=== PATIENT | male | born 1955 | race Caucasian/White ===

== ENCOUNTER → 2018-02-14 | Day surgery (SDC) | payer OTHER ==
[2018-01-05 12:34] VITALS: Ht 167.6 cm; Wt 72.7 kg
[~2018-02-14] VITALS: Ht 167.6 cm; Wt 72.7 kg
[~2018-02-14] MED LIST: ASPI-435 PO; ATROPINE SULFATE 0.1 MG/ML 5ML SYR IV PRN; BUPIVACAINE 0.5 % 5 MG/1 ML MPF 30ML VIAL ONE; CLINDAMYCIN PHOS 150 MG/ML 2 ML VIAL IV SCH; DEXAMETHASONE SOD INJ 4 MG/ML VIAL ONE; EpHEDrine SULFATE INJ 50 MG/ML AMP IV PRN; EpHEDrine SULFATE INJ 50 MG/ML AMP ONE; FENTANYL CITRATE INJ 50 MCG/1 ML 2 ML VIAL ONE; FLUMAZENIL 0.1 MG/1 ML 10 ML VIAL IV PRN; HYDROmorphone INJ 0.5 MG/0.5 ML SYR IV PRN; LABETALOL HCL IV 5 MG/ML 20ML IV PRN; LACTATED RINGER'S 1000ML 1,000 ML IV SCH; LIDOCAINE HCL 2% 2 ML VIAL (20MG/ML) ONE; MIDAZOLAM HCL 1 MG/ML 2ML VIAL ONE; NALOXONE HCL 0.4 MG/1 ML VIAL/CARP IV PRN; OMEGCAP2 PO; ONDANSETRON INJ 2 MG/ML 2 ML VIAL IV PRN; ONDANSETRON INJ 2 MG/ML 2 ML VIAL ONE; OXYC-57 PO; PROMETHAZINE HCL INJ 12.5 MG in SODIUM CHLORIDE 0.9% 50ML 50 ML IV PRN; PROPOFOL IV EMULSION 10 MG/ML 20 ML VIAL ONE
--- NOTE | 2018-02-14 11:22 | History & Physical Bridge - [place] ---
H&P Re-Evaluation Bridge Note: I have examined the patient, reviewed the History & Physical and in the interval since the performance of the History & Physical I have noted the following changes of clinical significance: No changes noted Plan for cartiva implant left 1st MTPJ
--- NOTE | 2018-02-14 11:25 | Discharge Instructions-SurgCtr ---
Discharge Instructions Date of Service February 14, 2018. Visit Reason for Visit: Left Foot Hallux Rigidus Discharge Discharge Diagnosis / Problem: same Discharge Goals Goal(s): Decrease discomfort Activity Recommendations Activity Limitations: as noted below Lifting Limitations: no more than 5 pounds, until after follow-up appointment Shower/Bathe: keep incision dry Driving or Machine Use: resume 1 day after discharge Weightbearing Status: Left weightbearing Anesthesia . Post Anesthesia Instructions: If you have had General Anesthesia or IV Sedation: * Do not drive today. * Resume driving when surgeon permits. * Do not make important decisions or sign legal documents today. * Call surgeon for: 1. Temperature elevations greater than 101 degrees F. 2. Uncontrollable pain. 3. Excessive bleeding. 4. Persistent nausea and vomiting. 5. Medication intolerance (nausea, vomiting or rash). * For nausea and vomiting use only clear liquids such as: tea, soda, bouillon until nausea subsides, then gradually increase diet as tolerated. * If you have any concerns or questions, call your surgeon's office. If physician is unavailable and it is an emergency, call 911 or go to the nearest emergency room. . Diet Recommendations Home Diet: resume previous diet Pending Studies Studies pending at discharge: no Medical Emergencies . Who to Call and When: Medical Emergencies: If at any time you feel your situation is an emergency, please call 911 immediately. . Non-Emergent Contact Non-Emergency issues call your: Surgeon . . "Provider Documentation" section prepared by Mulugeta Brower. .
--- NOTE | 2018-02-14 12:42 | [facility] Post Operative Brief Note ---
Immediate Operative Summary Operative Date February 14, 2018. Pre-Operative Diagnosis Left Foot Hallux Rigidus Post-Operative Diagnosis Same Procedure(s) Performed Left Foot First Metatarsal Phalangeal Joint Surgical Cheilectomy With Cartiva Implant Surgeon Dr. Brower Vinyl Installer Surgeon(s) None Estimated Blood Loss 10 ML Findings Consistent with Post-Op Diagnosis Specimens None Anesthesia Type General Complication(s) none
--- NOTE | 2018-02-14 13:38 | DIAGNOSTIC IMAGING REPORT ---
SURGICNTR FOOT, 2 VIEWS HISTORY: 62 years-old Male LEFT FOOT SURGERY status post left foot surgery. COMPARISON: None available TECHNIQUE: 2 spot fluoroscopic images of the left foot were obtained utilizing 7.2 seconds of fluoroscopy time FINDINGS: Images demonstrate at least moderate degenerative changes about the first MTP joint. No surgical hardware identified. Suggested soft tissue prominence about the first MTP joint which may be postsurgical. Satisfactory alignment. IMPRESSION: Fluoroscopic assistance as above. Please see operative report for further details. The above report was generated using voice recognition software. It may contain grammatical, syntax or spelling errors. Electronically signed by: Kp Weinberg M.D. 02/14/2018 1:37 PM Dictated Date/Time: 02/14/2018 1:08 PM
[2018-02-14 13:41] VITALS: BP 136/74; PULSE 64; O2SAT 99
--- NOTE | 2018-02-14 14:17 | Anesthesia Progress Nt - [facility] ---
Anesthesia Post Op Note Date & Time February 14, 2018 at 14:17 Vital Signs Pain Intensity: 0 Vital Signs Past 12 Hours Date Time Temp Pulse Resp B/P (MAP) Pulse Ox O2 Delivery O2 Flow Rate FiO2 02/14/18 13:41 64 18 136/74 (94) 99 02/14/18 13:27 36.6 70 18 145/81 (102) 97 Room Air 02/14/18 13:13 36.5 70 12 124/71 97 Room Air 02/14/18 13:11 70 7 124/71 97 02/14/18 13:11 71 7 02/14/18 13:06 75 12 131/73 100 02/14/18 13:06 74 12 02/14/18 13:01 75 14 02/14/18 13:01 75 14 125/67 100 02/14/18 12:56 74 6 129/72 100 02/14/18 12:56 74 6 02/14/18 12:51 76 11 144/74 100 02/14/18 12:51 76 11 02/14/18 12:47 143/75 02/14/18 12:46 36.6 80 16 143/75 99 Mask 6 02/14/18 10:07 36.5 67 18 126/77 (93) 95 Room Air Notes Mental Status: alert / awake / arousable, participated in evaluation Pt Amnestic to Procedure: Yes Nausea / Vomiting: adequately controlled Pain: adequately controlled Airway Patency, RR, SpO2: stable & adequate BP & HR: stable & adequate Hydration State: stable & adequate Anesthetic Complications: no major complications apparent
--- NOTE | 2018-02-15 18:00 | [facility] Operative Report ---
Operative Report Operative Date February 15, 2018. Pre-Operative Diagnosis Left Foot Hallux Rigidus Post-Operative Diagnosis Same Procedure(s) Performed Left Foot First Metatarsal Phalangeal Joint Surgical Cheilectomy With Cartiva Implant Surgeon Dr. Brower Railroad Engineer Surgeon(s) None Estimated Blood Loss 10 ML Specimens None Anesthesia Type General Complication(s) none Indications Left hallux rigidus that has failed conservative therapy. Please see last clinical note for full HPI. Description of Procedure Patient was transferred from the preoperative holding area where a popliteal block was performed to [facility] before being brought to the operative suite and placed on the table in a supine position. All monitors were applied. Time out was performed. Prophylaxis was obtained with 600 mg clindamycin IV piggyback pre-operatively. Tourniquet was applied to the left calf, but not yet inflated. The left foot and ankle were then prepped and draped in the normal sterile fashion. After elevation of the left foot and ankle , tourniquet was inflated to 250 mmHg. Attention was directed to the medial aspect of the 1st metatarsophalangeal joint, left foot, where a linear incision was performed. Dissection was carried deep to the level of the subcutaneous tissue. Care was taken to preserve any neurovascular structures. Superficial venous bleeders were meticulously retracted and electrocauterized as necessary. Dissection was carried deep to the level of first metatarsophalangeal joint capsule. Capsular tissue was incised with a # 15 blade and reflected from the first metatarsal head and base of proximal phalanx. 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 Dorsal medial and lateral exuberant bone growth was denuded peripherally using sagittal saw and rongeurs. A guide wire for cartiva implant was inserted into the 1st metatarsal. Excellent position was noted and confirmed on fluroscopy. Trial sizer was used and a 10 mm implant was deemed warranted. Reaming and insertion was done per cartiva technique. Upon insertion, excellent ROM up to 65 degrees dorsiflexion was noted. Surgical site was flushed with copious amounts normal saline. Surgical site was then was closed with vicryl in layered fashion. Skin was closed with nylon. Again excellent ROM was noted to the 1st MTPJ of the left foot. Approximately 65 degrees dorisflexion was noted. A dry sterile dressing was placed and well padded soft dressing was applied to the LLE. Pt tolerated anesthesia and procedure well. He left OR with VSS and NVSI to LLE. He will fu in 1 week in my office for follow up. I attest to the content of the Intraoperative Record and any orders documented therein. Any exceptions are noted below.
== END | disposition home or self-care (01) ==
LOC: X.SURG 09:19
PROVIDERS: ATTEND Podiatrist
DX: M20.22 Hallux rigidus, left foot (principal); E66.9 Obesity, unspecified; Z68.26 Body mass index [BMI] 26.0-26.9, adult; Z88.0 Allergy status to penicillin; Z98.818 Other dental procedure status; Z90.89 Acquired absence of other organs; Z87.891 Personal history of nicotine dependence